=== PATIENT | male | born 1995 | race Two or more races ===

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

== ENCOUNTER 2019-02-03 14:50 | Outpatient (CLI) | payer BC ==
[2019-02-03 15:38] LABS: BASOPHILS # (AUTO) 0.1 /CMM (0.0-0.2); BASOPHILS % (AUTO) 1.5 % (0.0-2.0); EOSINOPHILS % (AUTO) 14.6 % (0.0-6.0); HEMATOCRIT 47 % (39-51); LYMPHOCYTES # (AUTO) 1.4 /CMM (0.8-4.8); LYMPHOCYTES % (AUTO) 18.1 % (20.0-44.0); MEAN CORPUSCULAR HGB CONC 34 g/dl (31.0-36.0); MEAN CORPUSCULAR VOLUME 89 fL (80-96); MONOCYTES # (AUTO) 0.7 /CMM (0.1-1.30); MONOCYTES % (AUTO) 8.6 % (2.0-12.0); NEUTROPHILS # (AUTO) 4.4 /CMM (1.8-8.9); NEUTROPHILS % (AUTO) 57.2 % (43.0-81.0); PLATELET COUNT (AUTO) 350 /CMM (150-450); RED BLOOD CELL COUNT(AUTO) 5.29 MIL/uL (4.5-6.0); WHITE BLOOD COUNT (AUTO) 7.7 K/uL (4.3-11.0)
[2019-02-03 15:56] LABS: ALBUMIN 3.9 g/dL (3.4-5.0); BILIRUBIN,TOTAL 0.3 mg/dL (0.2-1.0); CALCIUM, SERUM 8.9 mg/dL (8.5-10.1); TOTAL PROTEIN, SERUM 7.9 g/dL (6.4-8.2)
[2019-02-03 16:17] LABS: POTASSIUM 3.6 mmol/L (3.5-5.1)
== END 2019-02-03 23:59 | disposition home or self-care (01) ==
LOC: LAB 14:50
PROVIDERS: ATTEND Dermatology
DX: L20.89 Other atopic dermatitis (principal)
CPT/HCPCS: 36415; 80053-TC; 85025-TC

== ENCOUNTER 2021-05-30 09:59 | Outpatient (CLI) | payer BC | END 2021-05-30 23:59 | disposition home or self-care (01) | LOC: US 09:59 | PROVIDERS: ATTEND Legal Medicine | DX: K76.0 Fatty (change of) liver, not elsewhere classified (principal) | CPT/HCPCS: 76700-TC ==